=== PATIENT | male | born 1965 | race Caucasian/White ===

== ENCOUNTER 2022-10-04 14:04 | Inpatient (IN) | payer OTHER ==
[~2022-10-04] VITALS: Ht 172.7 cm; Wt 77.3 kg
[2022-10-04] MEDS ORDERED: SODIUM CHLORIDE 0.9% 2,300 ML IV ONE (14:45)
[2022-10-04] MEDS: ACETAMINOPHEN 500 MG TABLET PO ONE ×3 (15:17→15:42)
[2022-10-04 15:30] LABS: HEMATOCRIT 48.8 % (41-53); HEMOGLOBIN 16.1 g/dL (13.5-17.5); MEAN CORPUSCULAR HEMOGLOBIN 28.5 pg (26.0-34.0); MEAN CORPUSCULAR HGB CONC 32.9 G/dL (31.0-37.0); MEAN CORPUSCULAR VOLUME 87 fL (80-100); PLATELET COUNT (AUTO) 195 K/uL (150-450); RED BLOOD CELL COUNT(AUTO) 5.64 MIL/uL (4.50-5.90); RED CELL DISTRIBUTION WIDTH 14.2 % (11.5-14.5)
[2022-10-04 15:42] LABS: ANION GAP 10 mmol/L (8-16); CALCIUM, TOTAL 9.2 mg/dL (8.8-10.5); CARBON DIOXIDE 24 mmol/L (22-29); CHLORIDE 99 mmol/L (98-107); CREATININE 1.13 mg/dL (0.60-1.30); GLOMERULAR FILTR. RATE CALC > 60 mL/min (>60); GLUCOSE,RANDOM 126 mg/dL (70-110); POTASSIUM 3.6 mmol/L (3.5-5.1); SODIUM SERUM 133 mmol/L (136-145)
[2022-10-04 15:50] LABS: LACTIC ACID 1.4 mmol/L (0.4-2.0)
[2022-10-04 15:53] LABS: COVID AG,FIA SOURCE NASOPHARYNGEAL
[2022-10-04 15:57] LABS: APPEARANCE,URINE CLEAR (CLEAR); BILIRUBIN,URINE NEGATIVE (NEGATIVE); GLUCOSE, URINE (UA) NEGATIVE (NEGATIVE); KETONES,URINE NEGATIVE (NEGATIVE); LEUKOCYTE ESTERASE ,URINE NEGATIVE (NEGATIVE); NITRATE,URINE NEGATIVE (NEGATIVE); OCCULT BLOOD,URINE NEGATIVE (NEGATIVE); PH,URINE 5.5 (5.0-8.0); PROTEIN,URINE 30-70 mg/dL (NEGATIVE); SPECIFIC GRAVITIY, URINE 1.022 (1.003-1.030); UROBILINOGEN,URINE <=1.0 mg/dL (<=1.0)
[2022-10-04 16:03] LABS: AMPHET/METH SCREEN,URINE POSITIVE (NEGATIVE); BARBITURATE SCREEN, URINE NEGATIVE (NEGATIVE); BENZODIAZEPINES SCREEN,URINE NEGATIVE (NEGATIVE); CANNABINOID SCREEN,URINE POSITIVE (NEGATIVE); COCAINE SCREEN,URINE NEGATIVE (NEGATIVE); METHADONE SCREEN, URINE NEGATIVE (NEGATIVE); OPIATE SCREEN,URINE NEGATIVE (NEGATIVE); PHENCYCLIDINE SCREEN,URINE NEGATIVE (NEGATIVE)
[2022-10-04 16:07] LABS: ALANINE AMINOTRANSFERASE 22 U/L (12-78); ALBUMIN 3.4 g/dL (3.4-5.0); ALKALINE PHOSPHATASE 97 U/L (46-116); ASPARTATE AMINOTRANSFERASE 22 U/L (15-37); CREATINE KINASE, TOTAL ONLY 85 U/L (39-308); TOTAL PROTEIN, SERUM 7.7 g/dL (6.4-8.2)
[2022-10-04 16:09] LABS: BAND NEUTROPHILS % (MANUAL) 14 % (0-5); LYMPHOCYTES % (MANUAL) 2 % (22-44); MONOCYTES % (MANUAL) 2 % (2-9); SEGMENTED NEUTROPHILS % 82 % (40-70)
[2022-10-04] MEDS ORDERED: BISACODYL 10 MG RECTAL RECTAL SUPPOSITORY PR PRN (16:15)
[2022-10-04 16:16] LABS: INFLUENZA TYPE A NEGATIVE FOR TYPE A (NEGATIVE); INFLUENZA TYPE B NEGATIVE FOR TYPE B (NEGATIVE)
[2022-10-04] MEDS: SODIUM CHLORIDE 0.9% 1,000 ML IV SCH ×2 (16:25→23:25)
[2022-10-04] MEDS ORDERED: IOHEXOL 350 MG/ML 100 ML VIAL ONE ×2 (16:48→16:51)
[2022-10-04] MEDS ORDERED: SODIUM CHLORIDE 0.9% 100 ML ONE ×2 (16:48→16:51)
[2022-10-04] MEDS ORDERED: PIPERACILLIN/TAZO 3.375 GM/D5W 50 ML IV ONE (17:00)
[2022-10-04 17:29] LABS: ERYTHROCYTE SEDIMENTATION RATE 6 MM/HR (0-15)
[2022-10-04] MEDS ORDERED: VANCOMYCIN HCL 1.5 GM in DEXTROSE 5%-WATER 250 ML IV ONE (18:00)
[2022-10-04] MEDS: ONDANSETRON HCL 4 MG/2 ML VIAL IVP PRN (20:05)
[2022-10-04] MEDS: ACETAMINOPHEN 325 MG TABLET PO PRN (20:06)
[2022-10-04] MEDS: PIPERACILLIN/TAZO 3.375 GM/D5W 50 ML IV SCH (22:14)
[2022-10-04] MEDS: MORPHINE SULFATE 2 MG/ML SYRINGE IVP PRN (22:55)
[2022-10-04] MEDS: HEPARIN SODIUM,PORCINE 5,000 UNITS/ML VIAL SQ SCH (23:08)
[2022-10-05] MEDS: ACETAMINOPHEN 325 MG TABLET PO PRN ×4 (03:31→23:11)
[2022-10-05] MEDS: PIPERACILLIN/TAZO 3.375 GM/D5W 50 ML IV SCH ×3 (04:11→20:37)
[2022-10-05] MEDS: MORPHINE SULFATE 2 MG/ML SYRINGE IVP PRN ×2 (04:20→16:21)
[2022-10-05] MEDS: ONDANSETRON HCL 4 MG/2 ML VIAL IVP PRN (04:20)
[2022-10-05 07:31] LABS: ANION GAP 4 mmol/L (8-16); CALCIUM, TOTAL 7.7 mg/dL (8.8-10.5); CARBON DIOXIDE 27 mmol/L (22-29); CHLORIDE 105 mmol/L (98-107); CREATININE 0.99 mg/dL (0.60-1.30); GLOMERULAR FILTR. RATE CALC > 60 mL/min (>60); GLUCOSE,RANDOM 112 mg/dL (70-110); POTASSIUM 3.7 mmol/L (3.5-5.1); SODIUM SERUM 136 mmol/L (136-145)
[2022-10-05] MEDS: HEPARIN SODIUM,PORCINE 5,000 UNITS/ML VIAL SQ SCH ×2 (08:36→16:21)
[2022-10-05] MEDS: VANCOMYCIN 1GM/WATER(PEG/NADA) 200 ML IV SCH ×2 (08:36→20:37)
[2022-10-05 09:00] VITALS: BP 132/80; PULSE 90; RESP 20; TEMP 99.9; O2SAT 99
[2022-10-05] MEDS ORDERED: GADOTERATE MEGLUMINE 10 MMOL/20 ML VIAL IVP ONE (09:03)
[2022-10-05] MEDS: PANTOPRAZOLE SODIUM 40 MG/VIAL IVP SCH (09:26)
[2022-10-05] MEDS: SODIUM CHLORIDE 0.9% 1,000 ML IV SCH ×2 (09:26→16:21)
[2022-10-05 12:00] VITALS: BP 111/57; PULSE 86; PULSE 95; RESP 19; TEMP 99.6
[2022-10-05 16:00] VITALS: BP 119/67; PULSE 109; RESP 20; TEMP 100.6
[2022-10-05 20:00] VITALS: BP 109/65; PULSE 92; RESP 20
[2022-10-05 23:04] VITALS: BP 121/72; PULSE 94; RESP 18; TEMP 100.2
[2022-10-06] MEDS: SODIUM CHLORIDE 0.9% 1,000 ML IV SCH ×2 (00:51→08:30)
[2022-10-06] MEDS: HEPARIN SODIUM,PORCINE 5,000 UNITS/ML VIAL SQ SCH ×4 (00:51→23:30)
[2022-10-06] MEDS: PIPERACILLIN/TAZO 3.375 GM/D5W 50 ML IV SCH ×4 (03:05→20:28)
[2022-10-06 05:14] VITALS: BP 129/66; PULSE 82; RESP 19; TEMP 98.6
[2022-10-06 07:56] VITALS: BP 138/89; PULSE 85; RESP 20; TEMP 98
[2022-10-06 08:18] LABS: BASOPHILS % (AUTO) 0.4 % (0.0-2.0); EOSINOPHILS % (AUTO) 0.2 % (1.0-6.0); HEMATOCRIT 41.1 % (41-53); HEMOGLOBIN 13.6 g/dL (13.5-17.5); LYMPHOCYTES # (AUTO) 0.8 K/uL (1.0-4.8); LYMPHOCYTES % (AUTO) 7.1 % (22.0-44.0); MEAN CORPUSCULAR HEMOGLOBIN 28.5 pg (26.0-34.0); MEAN CORPUSCULAR HGB CONC 33.2 G/dL (31.0-37.0); MEAN CORPUSCULAR VOLUME 86 fL (80-100); MONOCYTES # (AUTO) 0.8 K/uL (0.1-1.0); MONOCYTES % (AUTO) 6.7 % (2.0-9.0); NEUTROPHILS # (AUTO) 9.7 K/uL (1.8-7.7); PLATELET COUNT (AUTO) 106 K/uL (150-450); RED BLOOD CELL COUNT(AUTO) 4.78 MIL/uL (4.50-5.90)
[2022-10-06 08:19] LABS: NEUTROPHILS % (AUTO) 85.6 % (40.0-70.0)
[2022-10-06] MEDS: PANTOPRAZOLE SODIUM 40 MG/VIAL IVP SCH (08:30)
[2022-10-06] MEDS: VANCOMYCIN 1GM/WATER(PEG/NADA) 200 ML IV SCH ×3 (08:30→23:30)
[2022-10-06] MEDS: MORPHINE SULFATE 2 MG/ML SYRINGE IVP PRN ×2 (08:31→13:38)
[2022-10-06 08:36] LABS: ANION GAP 8 mmol/L (8-16); CALCIUM, TOTAL 8.2 mg/dL (8.8-10.5); CARBON DIOXIDE 24 mmol/L (22-29); CHLORIDE 104 mmol/L (98-107); CREATININE 0.86 mg/dL (0.60-1.30); GLOMERULAR FILTR. RATE CALC > 60 mL/min (>60); GLUCOSE,RANDOM 110 mg/dL (70-110); POTASSIUM 3.6 mmol/L (3.5-5.1); SODIUM SERUM 136 mmol/L (136-145); VANCOMYCIN,RANDOM 8.5 mcg/mL (25.0-50.0)
[2022-10-06 08:55] LABS: C-REACTIVE PROTEIN QUANT 25.95 mg/dL (0.00-0.30)
[2022-10-06 11:53] VITALS: BP 130/70; PULSE 91; RESP 19; TEMP 98.3
[2022-10-06 15:59] VITALS: BP 142/87; PULSE 90; RESP 19; TEMP 101
[2022-10-06] MEDS: ACETAMINOPHEN 325 MG TABLET PO PRN (16:13)
[2022-10-06 17:50] VITALS: TEMP 98.7
[2022-10-06 20:08] VITALS: BP 124/81; PULSE 89; RESP 19; TEMP 98.3
[2022-10-07] VITALS (7 sets, daily range): BP systolic 125–139; BP diastolic 63–91; PULSE 73–87; RESP 16–20; TEMP 87–100.4
[2022-10-07] MEDS: PIPERACILLIN/TAZO 3.375 GM/D5W 50 ML IV SCH ×4 (02:51→21:16)
[2022-10-07] MEDS: MORPHINE SULFATE 2 MG/ML SYRINGE IVP PRN ×2 (05:46→15:09)
[2022-10-07 07:31] LABS: ALANINE AMINOTRANSFERASE 25 U/L (12-78); ALBUMIN 2.3 g/dL (3.4-5.0); ALKALINE PHOSPHATASE 109 U/L (46-116); ANION GAP 8 mmol/L (8-16); ASPARTATE AMINOTRANSFERASE 30 U/L (15-37); BILIRUBIN,TOTAL 0.5 mg/dL (0.1-1.0); C-REACTIVE PROTEIN QUANT 14.12 mg/dL (0.00-0.30); CARBON DIOXIDE 25 mmol/L (22-29); CHLORIDE 102 mmol/L (98-107); GLOMERULAR FILTR. RATE CALC > 60 mL/min (>60); GLUCOSE,RANDOM 127 mg/dL (70-110); POTASSIUM 3.4 mmol/L (3.5-5.1); SODIUM SERUM 135 mmol/L (136-145); TOTAL PROTEIN, SERUM 6.5 g/dL (6.4-8.2)
[2022-10-07] MEDS: VANCOMYCIN 1GM/WATER(PEG/NADA) 200 ML IV SCH ×2 (08:39→15:08)
[2022-10-07] MEDS: HEPARIN SODIUM,PORCINE 5,000 UNITS/ML VIAL SQ SCH ×2 (08:39→17:27)
[2022-10-07] MEDS: PANTOPRAZOLE SODIUM 40 MG/VIAL IVP SCH (08:40)
[2022-10-07] MEDS ORDERED: GADOTERATE MEGLUMINE 10 MMOL/20 ML VIAL IVP ONE (15:04)
[2022-10-07] MEDS: ACETAMINOPHEN 325 MG TABLET PO PRN (17:26)
[2022-10-08] MEDS: PIPERACILLIN/TAZO 3.375 GM/D5W 50 ML IV SCH ×4 (03:58→20:37)
[2022-10-08 04:00] VITALS: BP 128/90; PULSE 77; RESP 18; TEMP 99.1
[2022-10-08 07:18] LABS: ANION GAP 4 mmol/L (8-16); CALCIUM, TOTAL 8.9 mg/dL (8.8-10.5); CARBON DIOXIDE 26 mmol/L (22-29); CHLORIDE 102 mmol/L (98-107); CREATININE 0.81 mg/dL (0.60-1.30); GLOMERULAR FILTR. RATE CALC > 60 mL/min (>60); GLUCOSE,RANDOM 128 mg/dL (70-110); POTASSIUM 3.4 mmol/L (3.5-5.1); SODIUM SERUM 132 mmol/L (136-145); VANCOMYCIN,RANDOM 7.4 mcg/mL (25.0-50.0)
[2022-10-08] MEDS: PANTOPRAZOLE SODIUM 40 MG/VIAL IVP SCH (07:56)
[2022-10-08] MEDS: HEPARIN SODIUM,PORCINE 5,000 UNITS/ML VIAL SQ SCH ×4 (07:56→23:30)
[2022-10-08] MEDS: VANCOMYCIN 1GM/WATER(PEG/NADA) 200 ML IV SCH ×2 (07:56)
[2022-10-08 08:04] VITALS: BP 131/80; PULSE 76; RESP 20; TEMP 98.8
[2022-10-08] MEDS: VANCOMYCIN HCL 1.25 GM in DEXTROSE 5%-WATER 250 ML IV SCH ×3 (08:15→23:30)
[2022-10-08] MEDS: MORPHINE SULFATE 2 MG/ML SYRINGE IVP PRN ×2 (15:14→22:13)
[2022-10-08] MEDS: LACTULOSE 20 GM/30 ML SOLUTION UDCUP PO PRN (16:01)
[2022-10-08 16:23] VITALS: BP 122/86; PULSE 78; RESP 20; TEMP 99.6
[2022-10-08 19:16] VITALS: BP 133/76; PULSE 88; RESP 18; TEMP 99.1
[2022-10-09] MEDS: LACTULOSE 20 GM/30 ML SOLUTION UDCUP PO PRN ×2 (03:12→07:37)
[2022-10-09] MEDS: PIPERACILLIN/TAZO 3.375 GM/D5W 50 ML IV SCH ×2 (03:13→10:25)
[2022-10-09 04:00] VITALS: BP 124/76; PULSE 78; RESP 20; TEMP 98.3
[2022-10-09 07:04] LABS: CALCIUM, TOTAL 8.9 mg/dL (8.8-10.5); CARBON DIOXIDE 27 mmol/L (22-29); CHLORIDE 99 mmol/L (98-107); CREATININE 0.85 mg/dL (0.60-1.30); GLOMERULAR FILTR. RATE CALC > 60 mL/min (>60); GLUCOSE,RANDOM 120 mg/dL (70-110); POTASSIUM 3.6 mmol/L (3.5-5.1)
[2022-10-09 07:08] LABS: ANION GAP 7 mmol/L (8-16); SODIUM SERUM 133 mmol/L (136-145)
[2022-10-09] MEDS: HEPARIN SODIUM,PORCINE 5,000 UNITS/ML VIAL SQ SCH ×3 (07:37→23:25)
[2022-10-09] MEDS: VANCOMYCIN HCL 1.25 GM in DEXTROSE 5%-WATER 250 ML IV SCH (07:37)
[2022-10-09] MEDS: PANTOPRAZOLE SODIUM 40 MG/VIAL IVP SCH (07:38)
[2022-10-09 07:39] VITALS: BP 133/80; PULSE 83; RESP 20; TEMP 99
[2022-10-09] MEDS ORDERED: PEG 3350/NA SULF,BICARB,CL/KCL 4000 ML SOLUTION PO ONE (14:15)
[2022-10-09] MEDS: MORPHINE SULFATE 2 MG/ML SYRINGE IVP PRN ×2 (15:48→18:49)
[2022-10-09] MEDS: PEG 400/HYPROMELLOSE/GLYCERIN 15 ML OPHTHALMIC SOLUTION OS SCH ×2 (15:48→20:07)
[2022-10-09] MEDS: AMPICILLIN SODIUM/SULBACTAM NA 3 GM in SODIUM CHLORIDE 0.9% 100 ML IV SCH ×2 (15:56→21:24)
[2022-10-09 16:00] VITALS: BP 127/79; PULSE 81; RESP 20; TEMP 98.9
[2022-10-09 20:10] VITALS: BP 125/62; PULSE 84; RESP 20; TEMP 99.1
[2022-10-10] MEDS: MORPHINE SULFATE 2 MG/ML SYRINGE IVP PRN ×4 (00:38→22:12)
[2022-10-10] MEDS: AMPICILLIN SODIUM/SULBACTAM NA 3 GM in SODIUM CHLORIDE 0.9% 100 ML IV SCH ×4 (03:56→21:21)
[2022-10-10 04:41] VITALS: BP 118/79; PULSE 72; RESP 18; TEMP 98.8
[2022-10-10] MEDS: LACTULOSE 20 GM/30 ML SOLUTION UDCUP PO PRN ×2 (07:45→20:21)
[2022-10-10] MEDS: HEPARIN SODIUM,PORCINE 5,000 UNITS/ML VIAL SQ SCH ×3 (07:46→23:07)
[2022-10-10] MEDS: PANTOPRAZOLE SODIUM 40 MG/VIAL IVP SCH (07:46)
[2022-10-10] MEDS: PEG 400/HYPROMELLOSE/GLYCERIN 15 ML OPHTHALMIC SOLUTION OS SCH ×3 (07:48→19:39)
[2022-10-10 08:01] LABS: ANION GAP 9 mmol/L (8-16); CALCIUM, TOTAL 9.2 mg/dL (8.8-10.5); CARBON DIOXIDE 28 mmol/L (22-29); CHLORIDE 100 mmol/L (98-107); CREATININE 0.69 mg/dL (0.60-1.30); GLOMERULAR FILTR. RATE CALC > 60 mL/min (>60); GLUCOSE,RANDOM 113 mg/dL (70-110); SODIUM SERUM 137 mmol/L (136-145)
[2022-10-10 08:58] VITALS: BP 116/76; PULSE 76; RESP 20; TEMP 98.9
[2022-10-10 10:15] LABS: BASOPHILS % (AUTO) 0.5 % (0.0-2.0); EOSINOPHILS % (AUTO) 1.3 % (1.0-6.0); HEMATOCRIT 46.4 % (41-53); HEMOGLOBIN 14.9 g/dL (13.5-17.5); LYMPHOCYTES # (AUTO) 2.1 K/uL (1.0-4.8); LYMPHOCYTES % (AUTO) 16.1 % (22.0-44.0); MEAN CORPUSCULAR HEMOGLOBIN 27.4 pg (26.0-34.0); MEAN CORPUSCULAR HGB CONC 32.2 G/dL (31.0-37.0); MEAN CORPUSCULAR VOLUME 85 fL (80-100); MONOCYTES # (AUTO) 1.5 K/uL (0.1-1.0); MONOCYTES % (AUTO) 12.2 % (2.0-9.0); NEUTROPHILS # (AUTO) 8.9 K/uL (1.8-7.7); NEUTROPHILS % (AUTO) 69.9 % (40.0-70.0); PLATELET COUNT (AUTO) 264 K/uL (150-450); RED BLOOD CELL COUNT(AUTO) 5.45 MIL/uL (4.50-5.90); RED CELL DISTRIBUTION WIDTH 14.1 % (11.5-14.5)
[2022-10-10] MEDS ORDERED: GADOTERATE MEGLUMINE 10 MMOL/20 ML VIAL IVP ONE (10:20)
[2022-10-10] MEDS ORDERED: SODIUM CHLORIDE 0.9% 1,000 ML ONE (10:41)
[2022-10-10 15:16] VITALS: BP 122/72; PULSE 64; RESP 18; TEMP 97.8
[2022-10-10 16:26] VITALS: BP 125/75; PULSE 83; RESP 20; TEMP 100
[2022-10-10] MEDS: VANCOMYCIN HCL 1.25 GM in DEXTROSE 5%-WATER 250 ML IV SCH ×2 (17:23→23:36)
[2022-10-10 19:43] VITALS: BP 118/70; PULSE 86; RESP 20; TEMP 99.8
[2022-10-10] MEDS: ACETAMINOPHEN 325 MG TABLET PO PRN (19:58)
[2022-10-11] MEDS: AMPICILLIN SODIUM/SULBACTAM NA 3 GM in SODIUM CHLORIDE 0.9% 100 ML IV SCH ×4 (03:49→21:26)
[2022-10-11 04:45] VITALS: BP 110/79; PULSE 83; RESP 20; TEMP 98.9
[2022-10-11 07:01] LABS: ANION GAP 7 mmol/L (8-16); CALCIUM, TOTAL 8.4 mg/dL (8.8-10.5); CARBON DIOXIDE 28 mmol/L (22-29); CHLORIDE 100 mmol/L (98-107); CREATININE 0.91 mg/dL (0.60-1.30); GLOMERULAR FILTR. RATE CALC > 60 mL/min (>60); GLUCOSE,RANDOM 136 mg/dL (70-110); POTASSIUM 3.9 mmol/L (3.5-5.1); SODIUM SERUM 135 mmol/L (136-145)
[2022-10-11] MEDS: PEG 400/HYPROMELLOSE/GLYCERIN 15 ML OPHTHALMIC SOLUTION OS SCH ×3 (08:33→19:39)
[2022-10-11] MEDS: PANTOPRAZOLE SODIUM 40 MG/VIAL IVP SCH (08:34)
[2022-10-11] MEDS: VANCOMYCIN HCL 1.25 GM in DEXTROSE 5%-WATER 250 ML IV SCH ×2 (08:34→16:32)
[2022-10-11] MEDS: HEPARIN SODIUM,PORCINE 5,000 UNITS/ML VIAL SQ SCH ×3 (08:34→23:15)
[2022-10-11] MEDS ORDERED: 0.9% SODIUM CHLORIDE 10 ML SYRINGE IVP PRN (11:45)
[2022-10-11] MEDS ORDERED: LIDOCAINE 1% 10 ML VIAL SQ ONE (11:45)
[2022-10-11] MEDS: ACETAMINOPHEN 325 MG TABLET PO PRN (17:50)
[2022-10-11 19:19] VITALS: BP 99/60; PULSE 89; RESP 18; TEMP 98.9
[2022-10-11 23:14] VITALS: BP 104/71; PULSE 70; TEMP 98.9
[2022-10-11] MEDS: MORPHINE SULFATE 2 MG/ML SYRINGE IVP PRN (23:15)
[2022-10-12] MEDS: VANCOMYCIN HCL 1.25 GM in DEXTROSE 5%-WATER 250 ML IV SCH ×4 (00:06→23:29)
[2022-10-12] MEDS: AMPICILLIN SODIUM/SULBACTAM NA 3 GM in SODIUM CHLORIDE 0.9% 100 ML IV SCH ×2 (03:15→10:47)
[2022-10-12] MEDS: ACETAMINOPHEN 325 MG TABLET PO PRN (03:15)
[2022-10-12 03:30] VITALS: BP 108/74; PULSE 72; RESP 18; TEMP 98.9
[2022-10-12 07:09] VITALS: BP 110/76; PULSE 74; RESP 18; TEMP 98.7
[2022-10-12 07:10] LABS: ANION GAP 8 mmol/L (8-16); CARBON DIOXIDE 26 mmol/L (22-29); CHLORIDE 101 mmol/L (98-107); CREATININE 0.82 mg/dL (0.60-1.30); GLOMERULAR FILTR. RATE CALC > 60 mL/min (>60); GLUCOSE,RANDOM 111 mg/dL (70-110); POTASSIUM 4.1 mmol/L (3.5-5.1); SODIUM SERUM 135 mmol/L (136-145); VANCOMYCIN,RANDOM 22.6 mcg/mL (25.0-50.0)
[2022-10-12] MEDS: HEPARIN SODIUM,PORCINE 5,000 UNITS/ML VIAL SQ SCH ×3 (08:26→23:29)
[2022-10-12] MEDS: MORPHINE SULFATE 2 MG/ML SYRINGE IVP PRN (08:29)
[2022-10-12] MEDS: PANTOPRAZOLE SODIUM 40 MG/VIAL IVP SCH (08:30)
[2022-10-12] MEDS: PEG 400/HYPROMELLOSE/GLYCERIN 15 ML OPHTHALMIC SOLUTION OS SCH ×3 (08:35→20:16)
[2022-10-12] MEDS: CefTRIAXone SODIUM 2 GM in DEXTROSE 5%-WATER 50 ML IV SCH (15:44)
[2022-10-12 15:45] VITALS: BP 101/65; PULSE 81; RESP 18; TEMP 99.2
[2022-10-12] MEDS: MetroNIDAZOLE 500 MG TABLET PO SCH ×2 (17:26→23:29)
[2022-10-12] MEDS: OxyCODONE HCL/ACETAMINOPHEN 5-325 MG TABLET PO PRN (20:15)
[2022-10-12 20:25] VITALS: BP 118/73; PULSE 84; RESP 18; TEMP 99
[2022-10-13] MEDS: OxyCODONE HCL/ACETAMINOPHEN 5-325 MG TABLET PO PRN (02:29)
[2022-10-13] MEDS: CefTRIAXone SODIUM 2 GM in DEXTROSE 5%-WATER 50 ML IV SCH ×2 (03:50→15:38)
[2022-10-13 03:55] VITALS: BP 114/63; PULSE 75; RESP 18; TEMP 98.5
[2022-10-13] MEDS: MetroNIDAZOLE 500 MG TABLET PO SCH ×4 (05:51→23:21)
[2022-10-13 07:42] LABS: ANION GAP 7 mmol/L (8-16); CALCIUM, TOTAL 8.6 mg/dL (8.8-10.5); CARBON DIOXIDE 28 mmol/L (22-29); CHLORIDE 100 mmol/L (98-107); CREATININE 0.88 mg/dL (0.60-1.30); GLOMERULAR FILTR. RATE CALC > 60 mL/min (>60); GLUCOSE,RANDOM 109 mg/dL (70-110); POTASSIUM 4.2 mmol/L (3.5-5.1); SODIUM SERUM 135 mmol/L (136-145)
[2022-10-13] MEDS: VANCOMYCIN HCL 1.25 GM in DEXTROSE 5%-WATER 250 ML IV SCH ×3 (08:24→23:21)
[2022-10-13] MEDS: HEPARIN SODIUM,PORCINE 5,000 UNITS/ML VIAL SQ SCH ×3 (08:25→23:21)
[2022-10-13] MEDS: PANTOPRAZOLE SODIUM 40 MG/VIAL IVP SCH (08:27)
[2022-10-13] MEDS: PEG 400/HYPROMELLOSE/GLYCERIN 15 ML OPHTHALMIC SOLUTION OS SCH ×3 (09:37→20:16)
[2022-10-13 09:49] VITALS: BP 114/79; PULSE 74; RESP 20; TEMP 98
[2022-10-13] MEDS: MORPHINE SULFATE 2 MG/ML SYRINGE IVP PRN (15:48)
[2022-10-13 15:58] VITALS: BP 110/70; PULSE 91; RESP 20; TEMP 99.7
[2022-10-13 19:30] VITALS: BP 114/64; PULSE 97; RESP 20; TEMP 98.9
[2022-10-14] MEDS: CefTRIAXone SODIUM 2 GM in DEXTROSE 5%-WATER 50 ML IV SCH ×2 (03:01→16:13)
[2022-10-14 04:05] VITALS: BP 106/71; PULSE 90; RESP 18; TEMP 98.5
[2022-10-14] MEDS: MetroNIDAZOLE 500 MG TABLET PO SCH ×4 (05:55→23:28)
[2022-10-14 07:13] LABS: ANION GAP 6 mmol/L (8-16); CARBON DIOXIDE 28 mmol/L (22-29); CHLORIDE 100 mmol/L (98-107); CREATININE 0.89 mg/dL (0.60-1.30); GLOMERULAR FILTR. RATE CALC > 60 mL/min (>60); GLUCOSE,RANDOM 122 mg/dL (70-110); POTASSIUM 4.3 mmol/L (3.5-5.1); SODIUM SERUM 134 mmol/L (136-145)
[2022-10-14] MEDS: VANCOMYCIN HCL 1.25 GM in DEXTROSE 5%-WATER 250 ML IV SCH ×3 (07:58→23:28)
[2022-10-14] MEDS: HEPARIN SODIUM,PORCINE 5,000 UNITS/ML VIAL SQ SCH ×3 (07:58→23:28)
[2022-10-14] MEDS: PANTOPRAZOLE SODIUM 40 MG/VIAL IVP SCH (07:58)
[2022-10-14] MEDS: PEG 400/HYPROMELLOSE/GLYCERIN 15 ML OPHTHALMIC SOLUTION OS SCH ×3 (08:04→20:55)
[2022-10-14 08:15] VITALS: BP 112/67; PULSE 89; RESP 18; TEMP 98.4
[2022-10-14] MEDS: MORPHINE SULFATE 2 MG/ML SYRINGE IVP PRN ×2 (09:11→23:27)
[2022-10-14 19:38] VITALS: BP 108/66; PULSE 86; RESP 20; TEMP 99.3
[2022-10-15] MEDS: OxyCODONE HCL/ACETAMINOPHEN 5-325 MG TABLET PO PRN ×2 (02:44→11:21)
[2022-10-15] MEDS: CefTRIAXone SODIUM 2 GM in DEXTROSE 5%-WATER 50 ML IV SCH ×2 (04:26→15:11)
[2022-10-15 04:29] VITALS: BP 99/67; PULSE 70; RESP 18; TEMP 98
[2022-10-15] MEDS: MetroNIDAZOLE 500 MG TABLET PO SCH ×4 (05:55→23:32)
[2022-10-15 07:52] VITALS: BP 104/68; PULSE 72; RESP 18; TEMP 98.4
[2022-10-15 08:09] LABS: ANION GAP 12 mmol/L (8-16); CALCIUM, TOTAL 9.2 mg/dL (8.8-10.5); CARBON DIOXIDE 25 mmol/L (22-29); CHLORIDE 99 mmol/L (98-107); CREATININE 0.84 mg/dL (0.60-1.30); GLOMERULAR FILTR. RATE CALC > 60 mL/min (>60); GLUCOSE,RANDOM 105 mg/dL (70-110); POTASSIUM 4.3 mmol/L (3.5-5.1); SODIUM SERUM 136 mmol/L (136-145); VANCOMYCIN,RANDOM 25.9 mcg/mL (25.0-50.0)
[2022-10-15] MEDS: VANCOMYCIN 1GM/WATER(PEG/NADA) 200 ML IV SCH ×3 (09:45→23:32)
[2022-10-15] MEDS: HEPARIN SODIUM,PORCINE 5,000 UNITS/ML VIAL SQ SCH ×3 (09:45→23:32)
[2022-10-15] MEDS: PANTOPRAZOLE SODIUM 40 MG/VIAL IVP SCH (09:48)
[2022-10-15] MEDS: PEG 400/HYPROMELLOSE/GLYCERIN 15 ML OPHTHALMIC SOLUTION OS SCH ×3 (09:50→20:03)
[2022-10-15 15:36] VITALS: BP 99/62; PULSE 82; RESP 20; TEMP 98.4
[2022-10-15] MEDS: MORPHINE SULFATE 2 MG/ML SYRINGE IVP PRN (20:05)
[2022-10-15 20:06] VITALS: BP 114/67; PULSE 79; RESP 20; TEMP 99.3
[2022-10-16 04:05] VITALS: BP 113/69; PULSE 78; RESP 20; TEMP 98.4
[2022-10-16] MEDS: CefTRIAXone SODIUM 2 GM in DEXTROSE 5%-WATER 50 ML IV SCH ×2 (04:16→16:07)
[2022-10-16] MEDS: MetroNIDAZOLE 500 MG TABLET PO SCH ×4 (05:45→23:31)
[2022-10-16 07:00] VITALS: BP_SYST 101; BP_SYST 171; BP_DIAS 65; BP_DIAS 99; PULSE 76; PULSE 85; RESP 20; TEMP 98.4; TEMP 98.8
[2022-10-16 07:14] LABS: ANION GAP 8 mmol/L (8-16); CARBON DIOXIDE 25 mmol/L (22-29); CHLORIDE 100 mmol/L (98-107); CREATININE 0.92 mg/dL (0.60-1.30); GLUCOSE,RANDOM 108 mg/dL (70-110); POTASSIUM 4.4 mmol/L (3.5-5.1); SODIUM SERUM 133 mmol/L (136-145)
[2022-10-16 07:15] LABS: CALCIUM, TOTAL 9.1 mg/dL (8.8-10.5); GLOMERULAR FILTR. RATE CALC > 60 mL/min (>60)
[2022-10-16] MEDS: PANTOPRAZOLE SODIUM 40 MG/VIAL IVP SCH (08:43)
[2022-10-16] MEDS: PEG 400/HYPROMELLOSE/GLYCERIN 15 ML OPHTHALMIC SOLUTION OS SCH ×3 (08:43→20:22)
[2022-10-16] MEDS: HEPARIN SODIUM,PORCINE 5,000 UNITS/ML VIAL SQ SCH ×3 (08:43→23:31)
[2022-10-16] MEDS: VANCOMYCIN 1GM/WATER(PEG/NADA) 200 ML IV SCH ×3 (08:43→23:31)
[2022-10-16 19:40] VITALS: BP 109/65; PULSE 75; RESP 20; TEMP 98.5
[2022-10-16] MEDS ORDERED: SODIUM CHLORIDE 0.9% 500 ML IV ONE (20:26)
[2022-10-16] MEDS: OxyCODONE HCL/ACETAMINOPHEN 5-325 MG TABLET PO PRN (20:28)
[2022-10-17] MEDS: CefTRIAXone SODIUM 2 GM in DEXTROSE 5%-WATER 50 ML IV SCH (05:06)
[2022-10-17] MEDS: MetroNIDAZOLE 500 MG TABLET PO SCH ×2 (05:06→12:53)
[2022-10-17 05:10] VITALS: BP 100/72; PULSE 80; RESP 20; TEMP 98.7
[2022-10-17 07:38] LABS: ANION GAP 9 mmol/L (8-16); CARBON DIOXIDE 26 mmol/L (22-29); CHLORIDE 101 mmol/L (98-107); CREATININE 0.87 mg/dL (0.60-1.30); GLOMERULAR FILTR. RATE CALC > 60 mL/min (>60); GLUCOSE,RANDOM 108 mg/dL (70-110); POTASSIUM 4.6 mmol/L (3.5-5.1); SODIUM SERUM 136 mmol/L (136-145)
[2022-10-17] MEDS: PANTOPRAZOLE SODIUM 40 MG/VIAL IVP SCH (08:04)
[2022-10-17] MEDS: VANCOMYCIN 1GM/WATER(PEG/NADA) 200 ML IV SCH (08:04)
[2022-10-17] MEDS: HEPARIN SODIUM,PORCINE 5,000 UNITS/ML VIAL SQ SCH (08:04)
[2022-10-17] MEDS: OxyCODONE HCL/ACETAMINOPHEN 5-325 MG TABLET PO PRN (08:04)
[2022-10-17] MEDS: PEG 400/HYPROMELLOSE/GLYCERIN 15 ML OPHTHALMIC SOLUTION OS SCH (08:10)
[2022-10-17] MEDS ORDERED: CEFT2VIA60 IV ×2 (11:34→11:40)
[2022-10-17] MEDS ORDERED: CEFT2VIA60 IM (11:34)
[2022-10-17] MEDS ORDERED: HEPA500018 SQ (11:41)
[2022-10-17] MEDS ORDERED: VANC1IV IV (11:44)
== END 2022-10-17 15:05 | DRG 720 ==
LOC: EDBD 14:06 → EMS 14:06 → ICUN 19:07 → ICU 10-05 07:03 → 5N 10-05 22:15 → 6N 10-07 16:25
PROVIDERS: ADMIT Internal Medicine; ATTEND Hospitalist
PROC: 02H633Z Insertion of Infusion Device into Right Atrium, Percutaneous Approach (ICD-10-PCS; principal; 2022-10-11)
DX: A41.9 Sepsis, unspecified organism (principal); G92.9 Unspecified toxic encephalopathy; G06.1 Intraspinal abscess and granuloma; D69.6 Thrombocytopenia, unspecified; E87.1 Hypo-osmolality and hyponatremia; B95.0 Streptococcus, group A, as the cause of diseases classified elsewhere; R65.20 Severe sepsis without septic shock; E87.6 Hypokalemia; M48.061 Spinal stenosis, lumbar region without neurogenic claudication; M46.46 Discitis, unspecified, lumbar region; M46.26 Osteomyelitis of vertebra, lumbar region; K56.41 Fecal impaction; F15.10 Other stimulant abuse, uncomplicated; Z20.822 Contact with and (suspected) exposure to COVID-19; Z59.00 Homelessness unspecified
CPT/HCPCS: 36245; 36569; 51702; 71045; 72126; 72129; 72133; 72158; 74018; 76937; 80048; 80053; 80202; 80307; 81003; 82550; 83605; 84484; 85025; 85651; 86140; 87040; 87077; 87081; 87205; 87804; 93005; 93306; 97110; 97112; 97116; 97162; 97163; 97167; 97530; 97535; 99291; C9113; G0378; J0295; J0696; J1644; J2270; J2405; J2543; J3370; J3490; J7030; J7040; J7050; J7060; Q9967; 36415-L1; 36415-TC